=== PATIENT | male | born 1995 | race Caucasian/White ===

== ENCOUNTER 2025-04-10 11:34 | Emergency (ER) | payer OTHER ==
[~2025-04-10] VITALS: Ht 167.6 cm; Wt 83.6 kg
[2025-04-10] MEDS: RABIES VACCINE HUMAN 2.5 INTERNATIONAL UNITS/ML VIAL (IMOVAX) IM ONE (13:03)
[2025-04-10 13:21] VITALS: BP 123/74; TEMP 97.3; O2SAT 99
== END 2025-04-10 13:37 | disposition home or self-care (01) ==
LOC: M ED 11:34
DX: Z20.3 Contact with and (suspected) exposure to rabies (principal); Z23 Encounter for immunization; Z29.14 Encounter for prophylactic rabies immune globulin; F10.10 Alcohol abuse, uncomplicated